=== PATIENT | male | born 1980 ===

== ENCOUNTER 2017-08-14 16:07 | Emergency (ER) | payer OTHER ==
[2017-08-14 16:42] VITALS: BP 141/76
[2017-08-14] MEDS ORDERED: NORCO 7.5/325 PO ONE (16:59)
[2017-08-14] MEDS ORDERED: MARCAINE 0.5% INFILTRATI ONE (16:59)
--- NOTE | 2017-08-14 17:08 | Emergency Department Report ---
ED Laceration HPI - HPI Chief Complaint: Wound/Laceration Stated Complaint: LACERATION UNDER LEFT ARM Time Seen by Provider: 08/14/17 16:46 Occurred When: Today Location: Upper Extremity Severity: mild Tetanus Status: Up to Date Laceration Symptoms: Yes Pain, No Foreign Body Sensation, No Numbness, No Weakness Other History: This is a 36-year-old male nontoxic, well nourished in appearance , no acute signs of distress presents to the ED with c/o of laceration to the left axilla region. Patient stated that when he was outside and presented he slipped and cut himself on a fence. Patient denies decreased range of motion, numbness, tingling, fever, chills, nausea, vomiting, headache or stiff neck. He stated bleeding is under control. Patient state he is currently up-to-date with tetanus. Denies any allergies or significant past medical history. ED Review of Systems ROS: Stated complaint: LACERATION UNDER LEFT ARM Other details as noted in HPI Constitutional: denies: chills, fever Eyes: denies: eye pain, eye discharge, vision change ENT: denies: ear pain, throat pain Respiratory: denies: cough, shortness of breath, wheezing Cardiovascular: denies: chest pain, palpitations Endocrine: no symptoms reported Gastrointestinal: denies: abdominal pain, nausea, diarrhea Genitourinary: denies: urgency, dysuria Musculoskeletal: denies: back pain, joint swelling, arthralgia Skin: denies: rash, lesions Neurological: denies: headache, weakness, paresthesias Psychiatric: denies: anxiety, depression Hematological/Lymphatic: denies: easy bleeding, easy bruising ED Past Medical Hx - Past Medical History Previous Medical History?: No - Surgical History Additional Surgical History: HAND SURGERY - Social History Smoking Status: Former Smoker Substance Use Type: None - Medications Home Medications: Home Medications Medication Instructions Recorded Confirmed Last Taken Type Ibuprofen [Motrin] 600 mg PO Q8H PRN #30 tablet 08/14/17 Unknown Rx Sulfamethoxazole/Trimethoprim 1 each PO BID #14 tablet 08/14/17 Unknown Rx [Bactrim DS TAB] Laceration Physical Exam - Exam General: Vital signs noted. No distress. Alert and acting appropriately. GENERAL: The patient is a well-developed, well-nourished in no apparent distress. Patient is alert and acting appropriately for age. Alert and oriented 3, no apparent distress, normal gait, atraumatic. HEENT: Head is normocephalic and atraumatic. PERRL, Extraocular muscles are intact. Pupils are equal, round, and reactive to light and accommodation. Nares appeared normal. Mouth is well hydrated and without lesions. Mucous membranes are moist. Posterior pharynx clear of any exudate or lesions. Mouth is well hydrated and without lesions. Tonsils not erythematous or swollen. Uvula midline. Tongue elevated. Mucous members are moist. Posterior pharynx clear, no exudate or lesions. Patent airways. NECK: Supple. No carotid bruits. No lymphadenopathy or thyromegaly.nontender. No meningitic signs are noted. LUNGS: Clear to auscultation. Non labor breathing. No intercostal retractions. Symmetrical with respiration, no wheezing, no rales, or crackles. HEART: Regular rate and rhythm without murmur, rubs or gallops. No reproducible. S1, S2 present, regular rate and rhythm without murmur, no rubs, no gallops. ABDOMEN: Soft, nontender, and nondistended. Positive bowel sounds. No hepatosplenomegaly was noted. No guarding or rebound tenderness, negative epigastric bruit. Negative psoas sign, negative chamorro sign, negative McBurneys sign EXTREMITIES: Without any cyanosis, clubbing, rash, lesions or edema. Peripheral pulses intact. Capillary refill less than 2 seconds. Full range of motion bilaterally. NEUROLOGIC: Cranial nerves II through XII are grossly intact. Alert and oriented x 3. Normal gait. Symmetrical strength and sensation. Reflexes 2+ throughout. Cerebellar testing normal. GCS score of 15. PSYCHIATRIC: Normal affect with no suicidal or homicidal ideations. Skin: 5 cm deep laceration with linear to left axilla region. No recent vomiting. Bleeding under control. No muscle or tendon involvement. Wound Length (cm): 5 Laceration Location: Upper Extremity Laceration Exam: Yes Normal Distal CMS, No Foreign Body, No Exposed Tendon, Vessel, or Nerve, No Tendon Injury ED Course Vital Signs 08/14/17 16:38 Temperature 98 F Pulse Rate 71 Respiratory 18 Rate Blood Pressure 141/76 O2 Sat by Pulse 100 Oximetry - Reevaluation(s) Reevaluation #1: 08/14/17 17:30 Patient is speaking in full sentences with no signs of distress noted. - Laceration /Wound Repair Left Arm Wound Location: upper extremity (left axilla region) Wound Length (cm): 5 Wound's Depth, Shape: linear Wound Explored: clean Irrigated w/ Saline (ccs): 40 Betadine Prep?: Yes Anesthesia: 0.5% Sensorcaine Volume Anesthetic (ccs): 6 Wound Debrided: minimal Wound Repaired With: sutures Suture Size/Type: 4:0, proline Number of Sutures: 5 Layer Closure?: Yes Deep Layer Suture Size/Type: 4:0 (vicryl) Number Deep Layer Sutures: 4 Sterile Dressing Applied?: Yes Progress: Under sterile field, I used Betadine to clean the area. I then used 40 mL of normal saline to flush the area. I then used 0.5% Marcaine plain and injected 6 mL to the wound. I did used a 4-0 Vicryl to approximate the deep dermis. Total stitches was 4. Then used a 4-0 Prolene to suture the laceration. Number of stitches 5. I then applied a sterile 4 x 4 with tape. Minimal bleeding noted but is under control. Patient tolerated procedure well with no signs of distress. ED Medical Decision Making - Medical Decision Making This is a 36-year-old male that presents with laceration. Patient stable was examined by me. Laceration has been repaired successfully with no signs of distress. Patient requests to return in 10 days for suture removal. Patient was educated on wound care. Patient is released with correction guards. Patient is discharged with Bactrim and Motrin. At time of discharge, the patient does not seem toxic or ill in appearance. No acute signs of distress noted. Patient agrees to discharge treatment plan of care. No further questions noted by the patient. Critical care attestation.: If time is entered above; I have spent that time in minutes in the direct care of this critically ill patient, excluding procedure time. ED Disposition Clinical Impression: Laceration Disposition: [id number] TO HOME OR SELFCARE Is pt being admited?: No Does the pt Need Aspirin: No Condition: Stable Instructions: Suture Care (ED), Laceration (ED) Additional Instructions: Return in 10 days for suture removal. Keep area dry and clean. Take antibiotics and Motrin as prescribed. Prescriptions: Ibuprofen [Motrin] 600 mg PO Q8H PRN #30 tablet PRN Reason: Pain Sulfamethoxazole/Trimethoprim [Bactrim DS TAB] 1 each PO BID #14 tablet
== END 2017-08-14 18:49 | disposition home or self-care (01) ==
LOC: ED 16:07
DX: S41.112A Laceration without foreign body of left upper arm, initial encounter (principal); W45.8XXA Other foreign body or object entering through skin, initial encounter; Y93.89 Activity, other specified; Y92.89 Other specified places as the place of occurrence of the external cause; Y99.8 Other external cause status